=== PATIENT | female | born 1980 | race Caucasian/White ===

== ENCOUNTER 2017-02-15 11:43 | Observation (INO) | payer OTHER, BC ==
[~2017-02-15] VITALS: Ht 160 cm; Wt 67.0 kg
[~2017-02-15 11:43] MED LIST: ACET50TA PO; IBUP60TA PO; IBUP80TA PO; PERCOCET PO; PRENTAB43 PO; SERO50TA PO; VITAPRTA PO
[2017-02-15] MEDS ORDERED: TRINTAB3 PO (11:52)
[2017-02-15 12:51] LABS: BASO % 0.3 % (0.0-1.0); EOS # 0.1 K/mm3 (0.0-0.50); LARGE UNSTAINED CELL # 0.2 K/mm3 (0.0-0.4); LARGE UNSTAINED CELL % 1.6 % (0.0-4.0); LYMPH # 1.9 K/mm3 (1.5-4.5); LYMPH % 20.5 % (24.0-44.0); MEAN CORPUSCULAR VOLUME 94.1 fl (80.0-96.0); MONO # 0.4 K/mm3 (0.0-0.8); MONO % 4.9 % (0.0-5.0); NEUTROPHILS # 6.5 K/mm3 (1.8-7.7); NEUTROPHILS % 71.8 % (36.0-66.0); PLATELET COUNT, AUTOMATED 278 k/mm3 (150-450); RED CELL DISTRIBUTION WIDTH 12.6 % (11.5-14.5)
[2017-02-15 13:00] LABS: CONTROL LINE HCG INT CTR LINE PRESENT
[2017-02-15 13:04] LABS: ANION GAP 7 MEQ/L (8-16); BLOOD UREA NITROGEN 15 MG/DL (7-18); CARBON DIOXIDE LEVEL 27 MEQ/L (21-32); CHLORIDE LEVEL 100 MEQ/L (98-107); CREATININE FOR GFR 0.68 MG/DL (0.55-1.02); GLOMERULAR FILTRATION RATE > 60.0 (>60); GLUCOSE, FASTING 87 MG/DL (70-105); POTASSIUM SERUM 3.6 MEQ/L (3.5-5.1); SODIUM LEVEL 134 MEQ/L (136-145)
[2017-02-15] MEDS ORDERED: NS 1,000 ML IV ONE (13:15)
[2017-02-15] MEDS ORDERED: ADACEL/BOOSTRIX VACCINE (DIPHTH/PERTUSS/ACELL/TETANUS)0.5ML SYR (90715) IM ONE (13:15)
[2017-02-15] MEDS ORDERED: MORPHINE 4 MG/ML 1ML SYRINGE IV ONE ×2 (13:15→14:30)
[2017-02-15] MEDS ORDERED: ONDANSETRON 4MG/2ML VIAL (J2405) IV ONE ×2 (13:15→15:30)
--- NOTE | 2017-02-15 13:23 | REP ---
CT Head without contrast HISTORY: Trauma COMPARISON: None There is no intraparenchymal hemorrhage, acute infarct, mass or midline shift. The ventricular system is normal in appearance. There is no extra cerebral collection. There is no fracture. The visualized sinuses are clear. IMPRESSION: There is no intracranial lesion. Signed by Torsten Russo MD 02/15/2017 01:14 P
--- NOTE | 2017-02-15 13:26 | REP ---
CT cervical spine without contrast HISTORY: Trauma COMPARISON: None There is no acute fracture or subluxation. There is no disc bulge or herniation. The spinal canal and neural foramina are patent. The intervertebral discs and vertebral bodies are normal in height. IMPRESSION: There is no acute fracture or subluxation. Signed by Torsten Russo MD 02/15/2017 01:18 P
[2017-02-15] MEDS ORDERED: LIDOCAINE 1% MDV 20ML VIAL As Ordered ONE (14:18)
[2017-02-15] MEDS ORDERED: LIDOCAINE 1% MDV 20ML VIAL SC ONE (14:30)
[2017-02-15] MEDS: NS 1,000 ML IV SCH (16:51)
[2017-02-15] MEDS ORDERED: PROMETHAZINE INJ 25 MG/ML VIAL (J2550) IV ONE (18:30)
[2017-02-15] MEDS ORDERED: KETOROLAC 30 MG/ML VIAL (J1885) IV ONE (18:30)
[2017-02-15] MEDS ORDERED: METOCLOPRAMIDE INJ 10MG/2ML VIAL (J2765) IV PRN (19:00)
[2017-02-15] MEDS ORDERED: ONDANSETRON 4MG/2ML VIAL (J2405) IV PRN (19:00)
[2017-02-15] MEDS ORDERED: PERCOCET 5MG/325MG TAB PO PRN ×2 (19:00)
[2017-02-15] MEDS ORDERED: ACETAMINOPHEN TAB 650MG DOSE (2X325MG) PO PRN (19:00)
--- NOTE | 2017-02-15 19:46 | HPE ---
DATE OF ADMISSION: 02/15/2017 PRIMARY CARE PHYSICIAN: Dr. Earl CHIEF COMPLAINT: Fall. HISTORY OF THE PRESENT ILLNESS: The patient is a 36-year-old female who was observing a medical procedure earlier this morning when a dressing change was being completed and the patient had been standing for a prolonged period of time, she felt hot and lightheaded, she exited the room. However, upon exiting, she did fall to the floor and lose consciousness. She does not know for how long; however, she was surrounded by nurses when she awoke. Denied any other prodromal symptoms of chest pain, shortness of breath, fevers, chills or recent sick contacts or recent illnesses. Upon awakening, she did feel better; however, she had a laceration on her left occiput and since the episode, has been feeling nauseous with minimal movement. She is having a headache, dizziness, difficulty with her balance, and has been unable to tolerate by mouth. She tells me that she is feeling better but certainly not resolved. PAST MEDICAL HISTORY: Small hiatal hernia. PAST SURGICAL HISTORY: section. Loop electrosurgical excision procedure (LEEP). ALLERGIES: No known drug allergies. SOCIAL HISTORY: No tobacco. Lives with her boyfriend. She works as a pharmacist in the hospital. She has three kids. HOME MEDICATIONS: Only home medication is control. PHYSICAL EXAMINATION: VITAL SIGNS: Temperature 99.1, heart rate 96, respiratory rate 18, blood pressure 102/78, oxygen saturation 100% on room air. GENERAL: She is a very pleasant, young, female laying in bed on her left side. She appears tired but in no acute distress. HEENT: Cranial nerves II-XII are grossly intact. She has moist mucous membranes. She has three lena in her left occiput, which appears to have some dry blood surrounding the laceration. No active bleeding. No nuchal rigidity. CARDIOVASCULAR EXAM: S1, S2, regular. RESPIRATORY EXAM: Clear. ABDOMINAL EXAM: Benign. EXTREMITIES: No clubbing, cyanosis or edema. LABORATORY STUDIES: WBC 9.0, hemoglobin 13, platelet count 278. Chemistry panel: Sodium 134, potassium 3.6, chloride 100, bicarbonate 27, BUN 15, creatinine 0.6. HCG is negative. IMAGING: The patient did have a CT scan of her head which reveals no intracranial lesion. She had a cervical spine CT that reveals no acute fracture or subluxation. ASSESSMENT AND PLAN: This is a 36-year-old female with postconcussive syndrome. PROBLEMS: Postconcussive syndrome: The patient's fall was clearly a vasovagal response, fairly classic, prolonged longstanding, hot, witnessing a malodorous dressing change with typical prodromal symptoms and resolution of symptoms. However, at the present time, the main concern is postconcussive syndrome. It does appear to be improving; however, it is certainly not resolved and she is not in any shape to return home. I will admit her to the observation status to the medical-surgical floor with neurologic checks, Tylenol and Percocet for pain, as well as Zofran and Reglan for nausea. I will also have her seen by physical therapy (PT) tomorrow. She will likely be off work for several days. I suspect that with time her symptoms should gradually resolve. She is okay to continue her home oral contraceptives. She will be admitted to Dr. Brink's service who will continue following her at 7:00 a.m. :
[2017-02-15 21:00] VITALS: BP 112/53
--- NOTE | 2017-02-15 21:35 | ECGEPIP ---
Stationary ECG Study [facility] - ED Test Date: 2017-02-15 Pat Name: HELGA BARNES Department: Room: - Gender: F Maintenance Repairman: david : 1980 Requested By: HUGO Gutierrez Order Number: [id number] Reading MD: Paulina Garibay Measurements Intervals [place] Rate: 59 P: -15 MO: 155 QRS: 56 QRSD: 98 T: 37 QT: 446 QTc: 444 Interpretive Statements SINUS BRADYCARDIA NSTTW ABNORMALITY NO PRIOR FOR COMPARISON Electronically Signed On 02-15-2017 21:34:53 EDT by Paulina Garibay
[2017-02-16 02:30] VITALS: BP 107/54
[2017-02-16 06:40] LABS: MEAN CORPUSCULAR HEMOGLOBIN 31.9 pg (27.0-33.0); MEAN CORPUSCULAR HGB CONC 33.3 g/dl (32.0-36.5); WHITE BLOOD COUNT 6.4 K/mm3 (4.0-10.0)
[2017-02-16 06:53] LABS: ANION GAP 6 MEQ/L (8-16); BLOOD UREA NITROGEN 10 MG/DL (7-18); CALCIUM LEVEL 8.4 MG/DL (8.5-10.1); CARBON DIOXIDE LEVEL 27 MEQ/L (21-32); CHLORIDE LEVEL 109 MEQ/L (98-107); CREATININE FOR GFR 0.67 MG/DL (0.55-1.02); GLOMERULAR FILTRATION RATE > 60.0 (>60); GLUCOSE, FASTING 84 MG/DL (70-105); POTASSIUM SERUM 4.6 MEQ/L (3.5-5.1); SODIUM LEVEL 142 MEQ/L (136-145)
[2017-02-16] MEDS: NS 1,000 ML IV SCH (07:36)
[2017-02-16] MEDS ORDERED: ONDA4TAB5 PO (08:25)
[2017-02-16] MEDS ORDERED: TYLE500T78 PO (08:25)
[2017-02-16 08:30] VITALS: BP 114/55
[2017-02-16] MEDS ORDERED: KETO10TAB PO (09:33)
[2017-02-16] MEDS ORDERED: KETOROLAC TROMETHAMINE 10 MG TAB PO ONE (10:00)
--- NOTE | 2017-02-16 21:31 | DSES ---
DATE OF ADMISSION: 02/15/2017 DATE OF DISCHARGE: 02/16/2017 PRIMARY CARE PROVIDER: Saeid Earl MD DISCHARGE DIAGNOSIS: 1. Vasovagal syncope. 2. Scalp injury requiring lena. 3. Hiatal hernia. 4. Migraines. 5. Scalp laceration. 6. Concussion. 7. Post concussion syndrome. 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 Next thing she knew she was surrounded by nurses when she awoke as per the skilled nurses and she was unconscious for less than minute. She was found to have a scalp laceration, was taken to the emergency room, had some lena put in. However, she continued to complain of headache with dizziness and had difficulty in balance and was unable to tolerate anything by mouth, so she was admitted to the hospital for observation for concussion. She was admitted to the hospital for post concussive symptoms. The patient did well. The patient did continue to have some nausea throughout the day. However, she got a dose of Phenergan overnight and she did well after that. She had a good night sleep and this morning did not have any symptoms. She did have a little tenderness at the site of the laceration. However, there was no nausea, vomiting. Her balance was good and she did not have any complaints. Her vitals were stable. She was functioning at her baseline, so she is going to be discharged home. PHYSICAL EXAMINATION: VITAL SIGNS: Temperature 90.7, pulse 63, respiratory rate 18, blood pressure 114/55, pulse oximetry 97% on room air. GENERAL: Awake, alert, oriented times three, sitting up in bed in no acute distress. HEENT: Normocephalic. Has a scalp laceration with three lena in it. Moist mucous membranes. Anicteric eyes. CHEST: Clear to auscultation. CARDIOVASCULAR: S1, S2 regular. No rub, murmur or gallop. ABDOMEN: Soft, nontender. Bowel sounds present. EXTREMITIES: No edema. LABORATORY DATA: White blood count (WBC) 6.4, hemoglobin 11.6, platelets 227. Sodium 142, potassium 4.6, chloride 109, bicarbonate 27, BUN 10, creatine 0.6, glucose 84, calcium 8.4. CT head: No intracranial lesion. Cervical spine CT: No acute fracture or subluxation. DISPOSITION: The patient is discharged home in stable condition. DISCHARGE INSTRUCTIONS: The patient to followup with primary care provider in one to two weeks' time. The patient to come to the emergency room for staple removal. Regular diet. Activity as tolerated. MTDD
== END 2017-02-16 10:19 | disposition home or self-care (01) ==
LOC: M ED 11:43 → M ED INP 18:47 → M PED 20:52
PROVIDERS: ADMIT Internal Medicine; ATTEND Internal Medicine Nephrology
DX: R55 Syncope and collapse (principal); S01.01XA Laceration without foreign body of scalp, initial encounter; S06.0X1A Concussion with loss of consciousness of 30 minutes or less, initial encounter; W18.49XA Other slipping, tripping and stumbling without falling, initial encounter; Y92.238 Other place in hospital as the place of occurrence of the external cause; Y99.0 Civilian activity done for income or pay; K44.9 Diaphragmatic hernia without obstruction or gangrene; F07.81 Postconcussional syndrome; Z23 Encounter for immunization; Z79.899 Other long term (current) drug therapy; Y93.89 Activity, other specified
CPT/HCPCS: 36415; 70450; 72125; 80048; 84703; 85025; 85027; 90471; 90715; 93005; 93041; 94760; 96374; 96375; 96376; 97161; 99285; J1885; J2405

== ENCOUNTER 2017-07-03 06:05 | Day surgery (SDC) | payer BC ==
[~2017-07-03] VITALS: Ht 160 cm; Wt 63.0 kg
[2017-07-03] VITALS (7 sets, daily range): BP systolic 106–127; BP diastolic 57–69
[~2017-07-03 06:05] MED LIST changes: +KETO10TAB PO; +ONDA4TAB5 PO; +TOPA50TA8 PO; +TRINTAB3 PO; +TYLE500T78 PO
[2017-07-03] MEDS ORDERED: CEFAZOLIN SOD 1 GM in APPROPRIATE DILUENT 1 EA IV ONE (06:15)
[2017-07-03] MEDS ORDERED: LR 1,000 ML IV ONE (06:15)
[2017-07-03] MEDS ORDERED: ACETAMINOPHEN 650 MG SUPP PR ONE (06:15)
[2017-07-03 06:28] LABS: MEAN CORPUSCULAR HEMOGLOBIN 31.3 pg (27.0-33.0); MEAN CORPUSCULAR HGB CONC 33.3 g/dl (32.0-36.5); MEAN CORPUSCULAR VOLUME 94.1 fl (80.0-96.0); PLATELET COUNT, AUTOMATED 296 10^3/uL (150-450); RED CELL DISTRIBUTION WIDTH 13.4 % (11.5-14.5); WHITE BLOOD COUNT 6.5 10^3/uL (4.0-10.0)
[2017-07-03 06:42] LABS: CONTROL LINE HCG INT CTR LINE PRESENT
[2017-07-03 06:47] LABS: ANION GAP 7 MEQ/L (8-16); BLOOD UREA NITROGEN 10 MG/DL (7-18); CARBON DIOXIDE LEVEL 26 MEQ/L (21-32); CHLORIDE LEVEL 109 MEQ/L (98-107); CREATININE FOR GFR 0.74 MG/DL (0.55-1.02); GLOMERULAR FILTRATION RATE > 60.0 (>60); GLUCOSE, FASTING 90 MG/DL (70-105); SODIUM LEVEL 142 MEQ/L (136-145)
[2017-07-03] MEDS ORDERED: FLUORESCEIN 10% (100MG/ML) 5 ML VIAL As Ordered ONE (07:17)
[2017-07-03] MEDS ORDERED: ACETAMINOPHEN 650 MG SUPP As Ordered ONE (07:17)
[2017-07-03] MEDS ORDERED: ceFAZolin 1GM INJ (J0690) As Ordered ONE (07:41)
[2017-07-03] MEDS ORDERED: BUPIVACAINE/EPIN 0.5% 30 ML VIAL As Ordered ONE (07:41)
[2017-07-03] MEDS ORDERED: PERC5TAB12 PO (07:48)
[2017-07-03] MEDS ORDERED: LIDOCAINE 2% INJ 100 MG/5 ML SDV (FOR ANES.) As Ordered ONE (07:51)
[2017-07-03] MEDS ORDERED: fentaNYL 250 MCG/5 ML INJECTION (J3010) As Ordered ONE (07:51)
[2017-07-03] MEDS ORDERED: MIDAZOLAM INJ 2 MG/2 ML VIAL (J2250) As Ordered ONE (07:51)
[2017-07-03] MEDS ORDERED: PROPOFOL 200 MG/20 ML VIAL As Ordered ONE (07:51)
[2017-07-03] MEDS ORDERED: ROCURONIUM BROMIDE 50 MG/5 ML VIAL As Ordered ONE (07:51)
[2017-07-03] MEDS ORDERED: ONDANSETRON 4MG/2ML VIAL (J2405) As Ordered ONE ×2 (07:52→10:37)
[2017-07-03] MEDS ORDERED: KETOROLAC 60 MG/2 ML VIAL (J1885) As Ordered ONE (07:52)
[2017-07-03] MEDS ORDERED: dexameTHASONE 4 MG/ML 1ML VIAL (J1100) As Ordered ONE (07:52)
[2017-07-03] MEDS ORDERED: HYDROmorphone HCL 2 MG/ML 1ML VIAL (J1170) As Ordered ONE (08:39)
[2017-07-03] MEDS ORDERED: PERCOCET 5MG/325MG TAB As Ordered ONE (10:37)
[2017-07-03] MEDS ORDERED: ONDANSETRON 4MG/2ML VIAL (J2405) IV PRN ×2 (10:45→11:00)
[2017-07-03] MEDS ORDERED: MEPERIDINE INJ 25 MG/ML VIAL (J2175) IV PRN (10:45)
[2017-07-03] MEDS ORDERED: fentaNYL 100 MCG/2 ML INJECTION (J3010) IV PRN (10:45)
[2017-07-03] MEDS ORDERED: LR 1,000 ML IV SCH (10:45)
[2017-07-03] MEDS ORDERED: METOCLOPRAMIDE INJ 10MG/2ML VIAL (J2765) IV PRN (10:45)
[2017-07-03] MEDS: PERCOCET 5MG/325MG TAB PO PRN ×4 (10:46→21:29)
[2017-07-03] MEDS ORDERED: diphenhydrAMINE INJ 50MG/ML VIAL (J1200) As Ordered ONE (10:50)
[2017-07-03] MEDS: SIMETHICONE 80 MG CHEW TAB PO SCH ×5 (11:00→23:08)
[2017-07-03] MEDS: IBUPROFEN 800 MG TAB PO SCH ×3 (11:00→23:08)
[2017-07-03] MEDS ORDERED: diphenhydrAMINE INJ 50MG/ML VIAL (J1200) IV PRN (11:15)
[2017-07-03] MEDS ORDERED: NEOSTIGMINE 10 MG/10 ML VIAL (J2710) As Ordered ONE (11:52)
[2017-07-03] MEDS ORDERED: GLYCOPYRROLATE INJ 0.2 MG/ML 2 ML VIAL As Ordered ONE (11:52)
--- NOTE | 2017-07-03 12:48 | RO ---
DATE OF PROCEDURE: 07/03/2017 PREOPERATIVE DIAGNOSES: 1. Pelvic pain. 2. Dysmenorrhea. 3. History of endometriosis. POSTOPERATIVE DIAGNOSES: 1. Pelvic pain. 2. Dysmenorrhea. 3. History of endometriosis. 4. Bladder adhesions. PROCEDURE: 1. Robotic-assisted laparoscopic hysterectomy. 2. Removal of both tubes. 3. Cystoscopy. 4. Lysis of adhesions. SURGEON: Dr. Tr Higginbotham SKIP LOADER: Diana Arevalo ANESTHESIA: COMPLICATIONS: None. ESTIMATED BLOOD LOSS: Less than 100 mL. FINDINGS: Mildly enlarged uterus with the bladder adherent to the lower uterine segment. Normal-appearing tubes and ovaries. On cystoscopy, bilateral ureteral jets were noted. No evidence of any bladder injury noted. Babs is a 37-year was female with an extensive history of pelvic pain, dysmenorrhea and history of endometriosis. After counseling in the office, a decision was made for robotic-assisted laparoscopic hysterectomy, removal of both tubes, and cystoscopy. DESCRIPTION OF OPERATION: After visiting with the patient in the preop area and reaffirming informed consent, the patient was taken to the operating room where general anesthetic was found to be adequate. She was then draped and prepped in the usual sterile fashion in the dorsal lithotomy position. At this point, a Godinez catheter was placed in the bladder for drainage. We then placed a uterine manipulator. After proper placement of the HUMI II uterine manipulator, I then turned my attention to the abdomen where a 10 mm infraumbilical incision was made using the Veress needle and the abdomen was insufflated with CO2 gas to approximately 3.5 liters. We then placed two right lateral ports for robotic arm two and the assist port on the right side. On the right lateral side, robotic arm one was placed. After placing these 8 mm trocars, the patient was placed in steep Trendelenburg. The robot was brought in at a 45 degrees angle. The robot was docked in the usual fashion. An Endo shear was placed in arm one, bipolar grasper was placed in arm two. I then unscrubbed and went over to the surgeon console and began the hysterectomy. The fallopian tubes were identified. The mesosalpinx was dissected using the Endo shear all way down to the utero-ovarian ligament. The utero-ovarian ligament was then coagulated with the bipolar grasper. And cut with the Endo shear. At this point, the round ligament was done in a similar fashion. The anterior leaflet of the broad ligament was dissected to create a bladder flap. The bladder was found to be adherent to the lower uterine segment. Careful dissection was done to push the bladder away from the lower uterine segment and the cervix. The opposite side was done in a similar fashion. We then skeletonized the uterine arteries. The uterine arteries were coagulated using the bipolar grasper and cut using the Endo shear. At this point, the anterior colpotomy was performed. The posterior colpotomy was completed. The uterus as well as the cervix and bilateral fallopian tubes were removed through the vagina. The Endo shear was then removed. The needle grasper was inserted and a #2-0 V-Loc suture was placed through the assist port. The vaginal cuff was closed in running fashion using the #2-0 V-Loc sutures. The pelvis copiously irrigated with normal saline and suctioned out. 1 mL of Furacin was given by the anesthesiologist to facilitate the cystoscopy. I then retrograde filled the bladder with 250 mL of normal saline. A cystoscopy was performed. Bilateral ureteral jets noted with no evidence of any bladder injury. At this point, the cystoscope was removed. A Godinez catheter placed back in the bladder for drainage. We then turned our attention to the abdomen where the robot was completely undocked, the trocars were removed, and the ports were closed using #0 Vicryl on the fascia and #3-0 Vicryl in the skin. Dermabond placed. 0.5% Marcaine was placed for postoperative pain. The patient tolerated the procedure well. She was then transferred to recovery room in stable condition.
[2017-07-03] MEDS: LR 1,000 ML IV SCH ×2 (13:16→19:00)
[2017-07-03] MEDS ORDERED: LR 400 ML IV SCH (16:15)
[2017-07-03] MEDS ORDERED: ONDANSETRON 4MG/2ML VIAL (J2405) IV ONE (17:15)
[2017-07-03] MEDS ORDERED: SLF 3 ML SYR IV PRN (17:45)
[2017-07-03] MEDS: SLF 3 ML SYR IV SCH (23:08)
[2017-07-04] VITALS: BP 105/58
[2017-07-04] MEDS: LR 1,000 ML IV SCH (03:00)
[2017-07-04 04:00] VITALS: BP 102/54
[2017-07-04] MEDS: SIMETHICONE 80 MG CHEW TAB PO SCH (05:08)
[2017-07-04] MEDS: PERCOCET 5MG/325MG TAB PO PRN ×2 (05:09→09:45)
[2017-07-04] MEDS: SLF 3 ML SYR IV SCH (05:10)
[2017-07-04] MEDS: IBUPROFEN 800 MG TAB PO SCH (05:10)
[2017-07-04 08:00] VITALS: BP 113/60
== END 2017-07-04 09:52 | disposition home or self-care (01) ==
LOC: M SDC 06:05 → M PED 12:08 → M SDC 07-04 09:52
PROVIDERS: ATTEND Obstetrics & Gynecology
DX: N94.6 Dysmenorrhea, unspecified (principal); N73.6 Female pelvic peritoneal adhesions (postinfective); Z87.42 Personal history of other diseases of the female genital tract; K21.9 Gastro-esophageal reflux disease without esophagitis; K44.9 Diaphragmatic hernia without obstruction or gangrene; G43.909 Migraine, unspecified, not intractable, without status migrainosus; Z79.3 Long term (current) use of hormonal contraceptives; Z79.899 Other long term (current) drug therapy
CPT/HCPCS: 36415; 58571; 80048; 84703; 85027; 86850; 86900; 86901; 88307; 96374; 96375; 96376; J1100; J1170; J1200; J1885; J2250; J2405; J2710; J3010

== ENCOUNTER → 2018-03-28 | Outpatient (CLI) | payer BC ==
[2018-03-28 13:58] LABS: BASO # 0.1 10^3/uL (0.0-0.2); BASO % 0.9 % (0.0-1.0); EOS # 0.1 10^3/uL (0.0-0.50); EOS % 1.4 % (0.0-3.0); HEMATOCRIT 39.7 % (36.0-47.0); IMMATURE GRANULOCYTE % 0.2 % (0-3.0); LYMPH # 1.5 10^3/uL (1.5-4.5); LYMPH % 22.7 % (24.0-44.0); MEAN CORPUSCULAR HEMOGLOBIN 31.2 pg (27.0-33.0); MEAN CORPUSCULAR HGB CONC 32.7 g/dl (32.0-36.5); MEAN CORPUSCULAR VOLUME 95.2 fl (80.0-96.0); MONO # 0.6 10^3/uL (0.0-0.8); NEUTROPHILS # 4.1 10^3/uL (1.8-7.7); NEUTROPHILS % 64.8 % (36.0-66.0); PLATELET COUNT, AUTOMATED 257 10^3/uL (150-450); RED BLOOD COUNT 4.17 10^6/uL (4.00-5.40); RED CELL DISTRIBUTION WIDTH 13.7 % (11.5-14.5); WHITE BLOOD COUNT 6.4 10^3/uL (4.0-10.0)
[2018-03-28 14:15] LABS: PROLACTIN 6.4 NG/ML
[2018-03-28 14:16] LABS: FOLLICLE STIMULATING HORMONE 5.9 mIU/mL
[2018-03-28 14:28] LABS: ALBUMIN 4.1 GM/DL (3.2-5.2); ALBUMIN/GLOBULIN RATIO 1.17 (1.00-1.93); ALKALINE PHOSPHATASE 60 U/L (45-117); ALT/SGPT 22 U/L (12-78); ANION GAP 7 MEQ/L (8-16); AST/SGOT 16 U/L (7-37); BILIRUBIN,TOTAL 0.5 MG/DL (0.2-1.0); BLOOD UREA NITROGEN 18 MG/DL (7-18); CALCIUM LEVEL 9.1 MG/DL (8.5-10.1); CARBON DIOXIDE LEVEL 26 MEQ/L (21-32); CHLORIDE LEVEL 109 MEQ/L (98-107); CHOLESTEROL LEVEL 221 MG/DL (<200); CHOLESTEROL RISK RATIO 2.946 (<5); CREATININE FOR GFR 0.77 MG/DL (0.55-1.30); GLOMERULAR FILTRATION RATE > 60.0 (>60); GLUCOSE, FASTING 86 MG/DL (70-100); HDL CHOLESTEROL 75 MG/DL (>40); LDL CHOLESTEROL 114.6 MG/DL (<100); NON-HDL-C 146 MG/DL; SODIUM LEVEL 142 MEQ/L (136-145); TOTAL PROTEIN 7.6 GM/DL (6.4-8.2); TRIGLYCERIDES LEVEL 157 MG/DL (<150)
[2018-03-31 14:12] LABS: ESTROGENS TOTAL 256 pg/mL (.)
== END ==
LOC: M WUC 08:36
DX: Z00.00 Encounter for general adult medical examination without abnormal findings (principal); R53.83 Other fatigue

== ENCOUNTER → 2018-04-08 | Outpatient (CLI) | payer BC | LOC: M WUC 15:51 | DX: J20.9 Acute bronchitis, unspecified (principal) | CPT/HCPCS: 71046 ==

== ENCOUNTER → 2020-09-27 | Outpatient (REF) ==
[~2020-09-27] MED LIST changes: -ACET50TA PO; +IBUP600T42 PO; -IBUP60TA PO; +MAPA500T17 PO; +ONDA-83 PO; -ONDA4TAB5 PO; +PERC5TAB12 PO; +TRINTAB PO; -TRINTAB3 PO
== END ==
LOC: M EMP 09:26
PROVIDERS: ATTEND Family Medicine
DX: Z11.52 Encounter for screening for COVID-19 (principal)

== ENCOUNTER → 2020-10-12 | Outpatient (CLI) | payer BC ==
[~2020-10-12] MED LIST changes: +LINZ290C PO; +MINO100T PO; +WELLTAB38 PO
== END ==
LOC: M LABSMTC 12:30
PROVIDERS: ATTEND Anesthesiology
DX: Z20.828 Contact with and (suspected) exposure to other viral communicable diseases (principal); Z11.59 Encounter for screening for other viral diseases

== ENCOUNTER 2020-10-17 08:05 | Day surgery (SDC) | payer BC ==
[~2020-10-17] VITALS: Ht 160 cm; Wt 64.0 kg
[~2020-10-17 08:05] MED LIST changes: +NS 1,000 ML IV ONE
[2020-10-17] MEDS ORDERED: propofoL 200 MG/20 ML VIAL As Ordered ONE ×2 (08:27→10:00)
[2020-10-17] MEDS ORDERED: LIDOCAINE 2% 100MG/5ML SDV (FOR ANES.) As Ordered ONE (08:27)
--- NOTE | 2020-10-17 10:24 | ROOR ---
Patient Name: Babs Hyatt Procedure Date: 10/17/2020 9:37 AM Date of : 1980 Age: 40 Room: [facility] Gender: Female Note Status: Finalized Procedure: Colonoscopy Indications: Hematochezia, Change in bowel habits, Constipation Providers: Dick Galicia MD Referring MD: Oneil Guerin Requesting Provider: Medicines: Monitored Anesthesia Care Complications: No immediate complications. Procedure: Pre-Anesthesia Assessment: - Prior to the procedure, a History and Physical was performed, and patient medications and allergies were reviewed. The patient is competent. The risks and benefits of the procedure and the sedation options and risks were discussed with the patient. All questions were answered and informed consent was obtained. Patient identification and proposed procedure were verified by the physician, the nurse and the anesthesiologist in the procedure room. Mental Status Examination: alert and oriented. Airway Examination: normal oropharyngeal airway and neck mobility. Respiratory Examination: clear to auscultation. CV Examination: normal. Prophylactic Antibiotics: The patient does not require prophylactic antibiotics. Prior Anticoagulants: The patient has taken no previous anticoagulant or antiplatelet agents. ASA Grade Assessment: II - A patient with mild systemic disease. After reviewing the risks and benefits, the patient was deemed in satisfactory condition to undergo the procedure. The anesthesia plan was to use monitored anesthesia care (MAC). Immediately prior to administration of medications, the patient was re-assessed for adequacy to receive sedatives. The heart rate, respiratory rate, oxygen saturations, blood pressure, adequacy of pulmonary ventilation, and response to care were monitored throughout the procedure. The physical status of the patient was re-assessed after the procedure. The Colonoscope was introduced through the anus and advanced to the terminal ileum, with identification of the appendiceal orifice and IC valve. The colonoscopy was performed without difficulty. The patient tolerated the procedure well. The quality of the bowel preparation was good. The terminal ileum, ileocecal valve, appendiceal orifice, and rectum were photographed. Scope insertion time was 2 minutes. Scope withdrawal time was 9 minutes. The total duration of the procedure was 12 minutes. Findings: The perianal and digital rectal examinations were normal. The terminal ileum appeared normal. A 5 mm polyp was found in the rectum. The polyp was sessile. The polyp was removed with a cold snare. Resection and retrieval were complete. Verification of patient identification for the specimen was done by the physician and nurse using the patient's name, date and medical record number. Estimated blood loss was minimal. The colon (entire examined portion) was moderately tortuous. Advancing the scope required applying abdominal pressure. Non-bleeding external and internal hemorrhoids were found during retroflexion. The hemorrhoids were small. There is no endoscopic evidence of diverticula in the entire colon. Impression: - The examined portion of the ileum was normal. - One 5 mm polyp in the rectum, removed with a cold snare. Resected and retrieved. - Tortuous colon. - Non-bleeding external and internal hemorrhoids. Recommendation: - Patient has a contact number available for emergencies. The signs and symptoms of potential delayed complications were discussed with the patient. Return to normal activities tomorrow. Written discharge instructions were provided to the patient. - High fiber diet. - Continue present medications. - Use fiber, for example Citrucel, Fibercon, Konsyl or Metamucil. - Miralax 1 capful (17 grams) in 8 ounces of water PO daily. - Await pathology results. - Repeat colonoscopy in 5-10 years for surveillance based on pathology results. - Telephone GI clinic for pathology results in 2 weeks. - Return to primary care physician. Procedure Code(s): --- Professional --- 00558, Colonoscopy, flexible; with removal of tumor(s), polyp(s), or other lesion(s) by snare technique Diagnosis Code(s): --- Professional --- K64.8, Other hemorrhoids K62.1, Rectal polyp K92.1, Melena (includes Hematochezia) R19.4, Change in bowel habit K59.00, Constipation, unspecified Q43.8, Other specified congenital malformations of intestine CPT copyright 2019 [employer] [place] [employer]. All rights reserved. The codes documented in this report are preliminary and upon assembler engine review may be revised to meet current compliance requirements. Dick Galicia MD Dick Galicia MD 10/17/2020 10:24:36 AM Electronically signed by Dick Galicia MD Number of Addenda: 0 Note Initiated On: 10/17/2020 9:37 AM Estimated Blood Loss: Estimated blood loss was minimal.
[2020-10-17 10:42] VITALS: BP 110/55
== END 2020-10-17 10:42 | disposition home or self-care (01) ==
LOC: M OPP 08:05
PROVIDERS: ATTEND Internal Medicine Gastroenterology
DX: K92.1 Melena (principal); R19.4 Change in bowel habit; D12.8 Benign neoplasm of rectum; Q43.8 Other specified congenital malformations of intestine; K64.8 Other hemorrhoids; K21.9 Gastro-esophageal reflux disease without esophagitis; F41.9 Anxiety disorder, unspecified; G43.909 Migraine, unspecified, not intractable, without status migrainosus; Z79.899 Other long term (current) drug therapy

== ENCOUNTER → 2021-03-06 | Outpatient (REF) ==
[~2021-03-06] MED LIST changes: -NS 1,000 ML IV ONE
== END ==
LOC: M EMP 08:38
PROVIDERS: ATTEND Family Medicine
DX: Z20.828 Contact with and (suspected) exposure to other viral communicable diseases (principal)

== ENCOUNTER → 2021-04-19 | Outpatient (REF) | LOC: M LABSMTC 11:49 | PROVIDERS: ATTEND Pediatrics | DX: Z11.52 Encounter for screening for COVID-19 (principal) ==

== ENCOUNTER → 2021-11-07 | Outpatient (REF) | payer BC ==
[2021-11-07 07:58] LABS: BASO # 0.1 10^3/uL (0.0-0.2); EOS # 0.1 10^3/uL (0.0-0.5); EOS % 1.7 % (0.0-3.0); HEMATOCRIT 37.8 % (36.0-47.0); HEMOGLOBIN 12.6 g/dl (12.0-15.5); LYMPH # 1.4 10^3/uL (1.5-5.0); LYMPH % 27.3 % (24.0-44.0); MEAN CORPUSCULAR HEMOGLOBIN 31.8 pg (27.0-33.0); MEAN CORPUSCULAR HGB CONC 33.3 g/dl (32.0-36.5); MEAN CORPUSCULAR VOLUME 95.5 fl (80.0-96.0); MONO # 0.5 10^3/uL (0.0-0.8); NEUTROPHILS # 3.2 10^3/uL (1.5-8.5); NEUTROPHILS % 60.6 % (36.0-66.0); PLATELET COUNT, AUTOMATED 228 10^3/uL (150-450); RED BLOOD COUNT 3.96 10^6/uL (4.00-5.40); WHITE BLOOD COUNT 5.2 10^3/uL (4.0-10.0)
[2021-11-07 08:40] LABS: ALBUMIN 3.9 GM/DL (3.2-5.2); ALT/SGPT 22 U/L (12-78); BILIRUBIN,TOTAL 0.4 MG/DL (0.2-1.0); BLOOD UREA NITROGEN 11 MG/DL (7-18); CALCIUM LEVEL 9.1 MG/DL (8.5-10.1); CARBON DIOXIDE LEVEL 27 MEQ/L (21-32); CHLORIDE LEVEL 107 MEQ/L (98-107); CHOLESTEROL LEVEL 208 MG/DL (<200); CREATININE FOR GFR 0.69 MG/DL (0.55-1.30); FREE T4 0.95 NG/DL (0.76-1.46); GLOMERULAR FILTRATION RATE > 60.0 (>60); GLUCOSE, FASTING 92 MG/DL (70-100); HDL CHOLESTEROL 80 MG/DL (>40); LDL CHOLESTEROL 100 MG/DL (<100); NON-HDL-C 128 MG/DL; POTASSIUM SERUM 4.3 MEQ/L (3.5-5.1); SODIUM LEVEL 139 MEQ/L (136-145); TOTAL PROTEIN 7.2 GM/DL (6.4-8.2); TRIGLYCERIDES LEVEL 138 MG/DL (<150)
[2021-11-07 09:32] LABS: HEMOGLOBIN A1c 5.1 %
== END ==
LOC: M LAB REF 07:39
PROVIDERS: ATTEND Physician Assistant
DX: Z13.220 Encounter for screening for lipoid disorders (principal); Z13.29 Encounter for screening for other suspected endocrine disorder

== ENCOUNTER → 2022-09-13 | Outpatient (REF) | payer BC ==
[2022-09-13 08:06] LABS: BASO # 0.1 10^3/uL (0.0-0.2); EOS # 0.1 10^3/uL (0.0-0.5); EOS % 1.5 % (0.0-3.0); HEMOGLOBIN 12.6 g/dl (12.0-15.5); LYMPH # 1.5 10^3/uL (1.5-5.0); LYMPH % 25.4 % (24.0-44.0); MEAN CORPUSCULAR HEMOGLOBIN 31.4 pg (27.0-33.0); MEAN CORPUSCULAR HGB CONC 32.3 g/dl (32.0-36.5); MEAN CORPUSCULAR VOLUME 97.3 fl (80.0-96.0); MONO # 0.5 10^3/uL (0.0-0.8); MONO % 8.4 % (2.0-8.0); NEUTROPHILS # 3.7 10^3/uL (1.5-8.5); NEUTROPHILS % 63.4 % (36.0-66.0); PLATELET COUNT, AUTOMATED 235 10^3/uL (150-450); RED BLOOD COUNT 4.01 10^6/uL (4.00-5.40); WHITE BLOOD COUNT 5.8 10^3/uL (4.0-10.0)
[2022-09-13 08:48] LABS: ALBUMIN 4.1 G/DL (3.2-5.2); ALKALINE PHOSPHATASE 57 U/L (46-116); ALT/SGPT 19 U/L (7.0-40); AST/SGOT 24 U/L (<34); BILIRUBIN,TOTAL 0.3 MG/DL (0.3-1.2); BLOOD UREA NITROGEN 13 MG/DL (9-23); CARBON DIOXIDE LEVEL 31 MMOL/L (20-31); CHLORIDE LEVEL 102 MMOL/L (98-107); CREATININE FOR GFR 0.65 MG/DL (0.55-1.30); GLOMERULAR FILTRATION RATE > 60.0 (>58); GLUCOSE, FASTING 90 MG/DL (60-100); POTASSIUM SERUM 4.7 MMOL/L (3.5-5.1); SODIUM LEVEL 137 MMOL/L (136-145)
[2022-09-13 08:51] LABS: TOTAL 25(OH) VITAMIN D 24.9 NG/ML (20.0-100.0)
== END ==
LOC: M LAB REF 07:36
PROVIDERS: ATTEND Physician Assistant
DX: E55.9 Vitamin D deficiency, unspecified (principal)

== ENCOUNTER → 2022-09-18 | Outpatient (CLI) | payer BC | LOC: M RAD 10:39 | PROVIDERS: ATTEND Nurse Practitioner Adult Health | DX: K59.00 Constipation, unspecified (principal) ==

== ENCOUNTER → 2023-01-16 | Outpatient (CLI) | payer BC | LOC: M RAD 07:55 → M LAB 07:55 | PROVIDERS: ATTEND Internal Medicine Gastroenterology | DX: K59.00 Constipation, unspecified (principal) ==

== ENCOUNTER → 2023-12-25 | Outpatient (CLI) | payer BC ==
[~2023-12-25] MED LIST changes: -MINO100T PO; +MINO100T6 PO
[2023-12-25 07:46] LABS: BASO # 0.1 10^3/uL (0.0-0.2); EOS # 0.1 10^3/uL (0.0-0.5); EOS % 1.7 % (0.0-3.0); HEMATOCRIT 36.7 % (36.0-47.0); HEMOGLOBIN 12.4 g/dl (12.0-15.5); LYMPH # 1.6 10^3/uL (1.5-5.0); LYMPH % 27.8 % (24.0-44.0); MEAN CORPUSCULAR HGB CONC 33.8 g/dl (32.0-36.5); MEAN CORPUSCULAR VOLUME 94.6 fl (80.0-96.0); MONO # 0.6 10^3/uL (0.0-0.8); MONO % 10.9 % (2.0-8.0); NEUTROPHILS # 3.4 10^3/uL (1.5-8.5); NEUTROPHILS % 58.4 % (36.0-66.0); PLATELET COUNT, AUTOMATED 236 10^3/uL (150-450); RED BLOOD COUNT 3.88 10^6/uL (4.00-5.40); WHITE BLOOD COUNT 5.9 10^3/uL (4.0-10.0)
[2023-12-25 07:55] LABS: APPEARANCE, URINE CLEAR (CLEAR); BACTERIA, URINE AUTO NEGATIVE (NEGATIVE); BILIRUBIN, URINE AUTO NEGATIVE (NEGATIVE); BLOOD, URINE BLOOD NEGATIVE (NEGATIVE); COLOR, URINE YELLOW (YELLOW); GLUCOSE, URINE (UA) AUTO NEGATIVE (NEGATIVE); KETONE, URINE AUTO NEGATIVE (NEGATIVE); LEUKOCYTE ESTERASE, URINE AUTO NEGATIVE (NEGATIVE); MUCUS, URINE SMALL (NEGATIVE); NITRITE, URINE AUTO NEGATIVE (NEGATIVE); PROTEIN, URINE AUTO NEGATIVE (NEGATIVE); RBC, URINE AUTO 0 /HPF (0-3); SPECIFIC GRAVITY URINE AUTO 1.018 (1.002-1.035); SQUAMOUS EPITHELIAL CELL UR AU 0 /HPF (0-6); UROBILINOGEN, URINE AUTO 0.2 mg/dL (0.0-2.0); WBC, URINE AUTO 0 /HPF (0-3)
[2023-12-25 08:13] LABS: ALBUMIN 3.7 G/DL (3.2-5.2); ALKALINE PHOSPHATASE 50 U/L (46-116); ALT/SGPT 25 U/L (7.0-40); AST/SGOT 18 U/L (<34); BILIRUBIN,TOTAL 0.6 MG/DL (0.3-1.2); BLOOD UREA NITROGEN 11 MG/DL (9-23); CARBON DIOXIDE LEVEL 29 MMOL/L (20-31); CHLORIDE LEVEL 107 MMOL/L (98-107); CHOLESTEROL LEVEL 201 MG/DL (<200); CHOLESTEROL RISK RATIO 3.32 (<5); CREATININE FOR GFR 0.64 MG/DL (0.55-1.30); GLOMERULAR FILTRATION RATE > 60.0 (>58); GLUCOSE, FASTING 93 MG/DL (60-100); HDL CHOLESTEROL 60.4 MG/DL (>40); NON-HDL-C 140.6 MG/DL; POTASSIUM SERUM 4.1 MMOL/L (3.5-5.1); SODIUM LEVEL 140 MMOL/L (136-145); TOTAL PROTEIN 6.6 G/DL (5.7-8.2); TRIGLYCERIDES LEVEL 143 MG/DL (<150)
[2023-12-25 08:15] LABS: FREE T4 1.02 NG/DL (0.89-1.76); TOTAL 25(OH) VITAMIN D 27.7 NG/ML (20.0-100.0)
== END ==
LOC: M LAB 07:15
PROVIDERS: ATTEND Physician Assistant
DX: E55.9 Vitamin D deficiency, unspecified (principal); Z13.220 Encounter for screening for lipoid disorders; Z13.29 Encounter for screening for other suspected endocrine disorder

== ENCOUNTER → 2024-12-16 | Outpatient (REF) | payer BC ==
[2024-12-16 12:29] LABS: BASO # 0.1 10^3/uL (0.0-0.2); BASO % 0.9 % (0.0-1.0); EOS # 0.1 10^3/uL (0.0-0.5); EOS % 1.6 % (0.0-3.0); HEMATOCRIT 38.8 % (36.0-47.0); HEMOGLOBIN 12.5 g/dl (12.0-15.5); LYMPH # 1.9 10^3/uL (1.5-5.0); LYMPH % 28.9 % (24.0-44.0); MEAN CORPUSCULAR HEMOGLOBIN 31.3 pg (27.0-33.0); MEAN CORPUSCULAR HGB CONC 32.2 g/dl (32.0-36.5); MEAN CORPUSCULAR VOLUME 97.2 fl (80.0-96.0); MONO # 0.7 10^3/uL (0.0-0.8); MONO % 10.3 % (2.0-8.0); NEUTROPHILS # 3.7 10^3/uL (1.5-8.5); NEUTROPHILS % 58.1 % (36.0-66.0); PLATELET COUNT, AUTOMATED 264 10^3/uL (150-450); RED BLOOD COUNT 3.99 10^6/uL (4.00-5.40); WHITE BLOOD COUNT 6.4 10^3/uL (4.0-10.0)
[2024-12-16 13:03] LABS: TOTAL 25(OH) VITAMIN D 39.6 NG/ML (20.0-100.0)
[2024-12-16 13:04] LABS: ALKALINE PHOSPHATASE 56 U/L (35-104); ALT/SGPT 22 U/L (7.0-40); AST/SGOT 22 U/L (<34); BILIRUBIN,TOTAL 0.4 MG/DL (0.3-1.2); BLOOD UREA NITROGEN 11 MG/DL (9-23); CALCIUM LEVEL 9.4 MG/DL (8.5-10.1); CARBON DIOXIDE LEVEL 30 MMOL/L (20-31); CHLORIDE LEVEL 102 MMOL/L (98-107); CHOLESTEROL LEVEL 216 MG/DL (<200); CHOLESTEROL RISK RATIO 3.41 (<5); GLOMERULAR FILTRATION RATE > 90.0 (>58); GLUCOSE, FASTING 76 MG/DL (60-100); HDL CHOLESTEROL 63.3 MG/DL (>40); LDL CHOLESTEROL 112.1 MG/DL (<100); NON-HDL-C 152.7 MG/DL; POTASSIUM SERUM 4.3 MMOL/L (3.5-5.1); SODIUM LEVEL 141 MMOL/L (136-145); TOTAL PROTEIN 7.1 G/DL (5.7-8.2); TRIGLYCERIDES LEVEL 203 MG/DL (<150)
== END ==
LOC: M LAB REF 10:17
PROVIDERS: ATTEND Physician Assistant
DX: E55.9 Vitamin D deficiency, unspecified (principal); E78.2 Mixed hyperlipidemia

== ENCOUNTER → 2025-07-21 | Outpatient (CLI) | payer BC | LOC: M RAD 11:36 | PROVIDERS: ATTEND Surgery | DX: K59.00 Constipation, unspecified (principal) ==